=== PATIENT | male | born 1970 | race Caucasian/White ===

== ENCOUNTER 2021-11-26 09:55 | Inpatient (IN) ==
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
[2021-11-26 11:45] LABS: Basophils # (auto) 0.06 K/uL (0-0.2); Basophils % (auto) 0.8 %; Eosinophils # (auto) 0.12 K/uL (0-0.50); Eosinophils % (auto) 1.5 %; Hematocrit (blood only) 44.2 % (40.1-51.0); Hemoglobin 14.7 g/dl (14.0-18.0); Immature Granulocytes # (auto) 0.01 K/uL (0.00-0.02); Immature Granulocytes % (auto) 0.1 %; Lymphocytes # (auto) 3.16 K/uL (1.2-3.4); Lymphocytes % (auto) 40.5 %; Mean Corpuscular Hemoglobin 30.9 pg (25.0-34.0); Mean Corpuscular Hgb Conc 33.3 g/dL (32.0-36.0); Mean Corpuscular Volume 93.1 fL (80.0-100.0); Mean Platelet Volume 8.8 fL (9.4-12.4); Monocytes # (auto) 0.53 K/uL (0.24-0.82); Monocytes % (auto) 6.8 %; Neutrophils # (auto) 3.92 K/uL (1.4-6.5); Neutrophils % (auto) 50.3 %; Platelet Count 293 K/uL (130-400); RDW Coefficient of Variation 13.1 % (11.5-14.5); RDW Standard Deviation 44.8 fL (36.4-46.3); Red Blood Count 4.75 M/uL (4.63-6.08)
[2021-11-26 12:08] LABS: BUN Creatinine Ratio 9.3 (10-20); Creatinine Clr Calc Pharmacy 93.8 ml/min; Est GFR (African American) 102.9 ml/min; Est GFR (Non-African American) 88.8 ml/min; Potassium 4.1 mmol/L (3.5-5.1)
[2021-11-26] MEDS: PENICILLIN G POTASSIUM 4 MU in DEXTROSE 5% 100 ML IV SCH ×3 (12:43→21:00)
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
[2021-11-26] MEDS ORDERED: ACETAMINOPHEN 325 MG TAB PO PRN (14:35)
[2021-11-26] MEDS ORDERED: ALUMINUM/MAGNESIUM SUSP 30 ML UDC PO PRN (14:35)
[2021-11-26] MEDS ORDERED: MAGNESIUM HYDROXIDE SUSP 30 ML UDC PO PRN (14:35)
[2021-11-26] MEDS ORDERED: ONDANSETRON INJ 2 MG/ML 2 ML VIAL IV PRN (14:35)
[2021-11-26] MEDS ORDERED: POLYETHYLENE (MIRALAX) 17 GM PACK PO PRN (14:35)
[2021-11-26] MEDS: LIDOCAINE 5% 1 PATCH TD SCH (15:15)
[2021-11-26] MEDS: NICOTINE 14 MG/24 HR PATCH TD SCH (15:15)
[2021-11-26 18:10] LABS: Appearance Urine Clear (Clear); Bacteria Urine Automated Negative (Negative); Bilirubin Urine Negative (Negative); Blood Urine Negative (Negative); Cast Urine Automated 0 /lpf (0-5); Color Urine Yellow; Glucose Urine UA Negative (Negative); Ketones Urine Negative (Negative); Leukocyte Esterase Urine 2+ (Negative); Nitrite Urine Negative (Negative); Protein Urine Negative (Negative); RBC Urine Automated 0-4 /hpf (0-4); Specific Gravity Urine 1.018 (1.000-1.030); Urobilinogen Urine Negative (Negative); pH Urine 6.5 (4.5-7.5)
[2021-11-26] MEDS: BIKTARVY PO SCH (21:01)
[2021-11-27] MEDS: PENICILLIN G POTASSIUM 4 MU in DEXTROSE 5% 100 ML IV SCH ×7 (00:23→23:58)
[2021-11-27 07:44] LABS: Basophils # (auto) 0.05 K/uL (0-0.2); Basophils % (auto) 0.7 %; Eosinophils # (auto) 0.13 K/uL (0-0.50); Eosinophils % (auto) 1.8 %; Hematocrit (blood only) 43.4 % (40.1-51.0); Immature Granulocytes # (auto) 0.02 K/uL (0.00-0.02); Immature Granulocytes % (auto) 0.3 %; Lymphocytes % (auto) 45.5 %; Mean Corpuscular Hemoglobin 31.3 pg (25.0-34.0); Mean Corpuscular Hgb Conc 34.6 g/dL (32.0-36.0); Mean Corpuscular Volume 90.6 fL (80.0-100.0); Mean Platelet Volume 8.9 fL (9.4-12.4); Monocytes # (auto) 0.44 K/uL (0.24-0.82); Monocytes % (auto) 6.1 %; Neutrophils # (auto) 3.31 K/uL (1.4-6.5); Neutrophils % (auto) 45.6 %; Platelet Count 286 K/uL (130-400); RDW Coefficient of Variation 13.1 % (11.5-14.5); RDW Standard Deviation 43.3 fL (36.4-46.3); Red Blood Count 4.79 M/uL (4.63-6.08); White Blood Count 7.25 K/ul (4.8-10.8)
[2021-11-27 08:04] LABS: Albumin Globulin Ratio 1.2 (0.9-2); Albumin Level 3.8 gm/dl (3.4-5.0); BUN Creatinine Ratio 10.8 (10-20); Bilirubin,Total 0.5 mg/dl (0.2-1.0); Creatinine Clr Calc Pharmacy 89.2 ml/min; Est GFR (African American) 96.8 ml/min; Est GFR (Non-African American) 83.5 ml/min; Globulin 3.2 gm/dl (2.5-4.0); Magnesium 1.9 mg/dl (1.7-2.4); Potassium 4.1 mmol/L (3.5-5.1)
[2021-11-27] MEDS ORDERED: BIKTARVY PO SCH (09:00)
[2021-11-27] MEDS: NICOTINE 14 MG/24 HR PATCH TD SCH (09:32)
[2021-11-27] MEDS: LIDOCAINE 5% 1 PATCH TD SCH (09:49)
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
--- NOTE | 2021-11-27 16:45 | Hospitalist Progress Note ---
Date of Service November 27, 2021 Assessment & Plan (1) Syphilis: Plan: Possible Neurosyphilis due to vision changes Pt was tested positive for syphilis in June with positive RPR and positive fluorescent antibody Spoke To Infectious disease (Betty PUENTE ) at [facility] in [place] that recommended IV Penicillin G 4 Mu q4h or continuous for 10 to 14 days No need to get an LP as per infectious disease since pt refused to get it and will not change the management No need for CT head as per ID unless pt develops focal neuro deficit Per ophthalmology consult, symptoms are consistent with a homonymous field deficit with source of pathology in the JAVA TECHNICAL ARCHITECT visual pathways and not in the eyes or optic nerves. Concern for vascular event given sudden onset. Recommends further optic imaging upon discharge for a more definitive diagnosis and gauging prognosis for possible driving limitations. The patient has symptoms consistent with a homonymous field deficit. This places the source of the pathology in the JAVA TECHNICAL ARCHITECT visual pathways or visual cortex behind the optic chiasm and not in the eyes or optic nerves. Given the sudden onset a vascular event would seem the most likely cause. I would recommend imaging to better evaluate for a more definitive diagnosis. Upon discharge a more thorough eye exam as an outpatient is indicated with automated visual field testing. This would better define his field deficit to gauge prognosis and whether there should be limitations on driving. Spoke to [place] at [facility] (no need to contact them - she will get in touch with ID once treatment completes) Will need to follow up with ID as an outpatient Case management consulted for social disposition and possible to arrange for outpatient IV infusion HIV Most recent CD4 count 836 (24%) VL <20 on 10/27 Continue Biktavy HS Follow up with ID Dr. Wang Vertigo Pt said that symptom started after received his last covid shot No focal neuro deficit on exam If develops any focal neuro deficit, consider to get a CT scan of the head Will consult PT/OT Chronic Viral hepatis B Most recent recent viral load 3440 Outpatient U/S ordered as per ID note Will check LFT in am Questionable Hematuria Possible related to Aleve for his back pain vs renal stone Hgb stable, UA without evidence of blood or rbcs Will avoid NSAIDs for now Back pain No NSAID for the hematuria Will add Lidocaine patch Tobacco abuse Counseling on tobacco cessation Will add nicotine patch DVT px SCD for now for possible hematuria Encourage pt to ambulate once stable by PT/OT Code status FULL CODE Disposition ID Contact Aung): [phone] [facility] ([place]) : [phone] Admission and Anticipated Discharge Date Admission Date: November 26, 2021 Supervising Physician Co-Signing Physician Notes Patient is seen and examined at bedside. Continues to have visual haley llucinations. Also reports having mild headache. Denies any chest pain, shortness of breath, dizziness, nausea, abdominal pain. On exam patient is moderately built and nourished, no apparent distress, normocephalic atraumatic, EOMI, normal breath sounds, clear to auscultation, S1-S2, no murmur, no pedal edema, abdomen soft, nontender, normal bowel sounds, alert, awake, oriented, grossly no focal deficits. Continue IV penicillin G for possible neurosyphilis. Needs follow-up with infectious disease as outpatient. Also needs follow-up with ophthalmology upon discharge. I personally reviewed the record. Patient is interviewed and examined at bedside. Patient's care is coordinated with Eladia Washington PA-C. Please refer to the documentation above for details of patient's presentation and for discussion of other issues. Subjective Patient seen and examined in 355-2 in follow-up for visual disturbances and concern for neurosyphilis. Patient continues to have visual disturbances worse in right eye. Notices it most when he is trying to watch TV. Any focal weakness or additional deficits. Able to ambulate to the restroom without issue . Denies any fever, chills, headache, chest pain, shortness of breath, nausea, vomiting, abdominal pain, dysuria, diarrhea constipation. Review of Systems Review of Systems: At least ten systems reviewed and negative except as noted in the HPI. Physical Exam Physical Exam: General- No acute distress, resting comfortably in bed while IV team places new line Head- atraumatic Eyes- PERRL, EOMI ENT- oropharynx clear Neck- supple, no JVD, No carotid bruit present. No rigidity Lungs- clear to auscultation Heart- regular rhythm; no murmur Abdomen- normal bowel sounds, soft, nontender Extremities- no calf tenderness Neuro- alert, oriented x 3; PERRL, EOMI; no facial palsy; no dysarthria, finger to nose intact, sensation and motor intact Skin- warm & dry, tattoos on his back and extremities Results & Data Results & Data ([facility]) Vital Signs (Past 12 Hours) Vital Signs Temp Pulse Resp BP Pulse Ox 11/27/21 15:51 36.8 C 65 16 110/75 97 11/27/21 07:27 36.8 C 62 16 109/71 96 Laboratory Results Short CBC 11/27/21 Range/Units 07:14 WBC 7.25 (4.8-10.8) K/ul Hgb 15.0 (14.0-18.0) g/dl Hct 43.4 (40.1-51.0) % Plt Count 286 (130-400) K/uL BMP 11/27/21 07:14 Sodium 138 Potassium 4.1 Chloride 106 Carbon Dioxide 28 BUN 11 Creatinine 1.02 Glucose 94 Calcium 9.0 Liver Function 11/27/21 Range/Units 07:14 Total Bilirubin 0.5 (0.2-1.0) mg/dl AST 25 (13-39) U/L ALT 42 (7-52) U/L Alkaline Phosphatase 76 (34-104) U/L Albumin 3.8 (3.4-5.0) gm/dl Urine 11/26/21 Range/Units 16:20 Urine Color Yellow Urine Appearance Clear (Clear) Urine pH 6.5 (4.5-7.5) Ur Specific [place] 1.018 (1.000-1.030) Urine Protein Negative (Negative) Urine Glucose (UA) Negative (Negative)
--- NOTE | 2021-11-27 19:36 | CT Scan Report ---
CT head/brain wo con CLINICAL HISTORY: 51 years-old Male with Visual changes, R/O CVA. Acute strokelike symptoms TECHNIQUE: Multiple axial CT images of the head were obtained without contrast. A dose lowering tech nique was utilized adhering to the principles of ALARA. CT DOSE: 537.48 mGy.cm COMPARISON: 01/11/2007 FINDINGS: No acute intracranial hemorrhage, midline shift, intracranial mass, hydrocephalus, territorial ischem ia or abnormal extra-axial collection. The calvarium is intact. Subcutaneous prominence within the right parieto-occipital scalp on image 20 is suggestive of a small contusion. The paranasal sinuses, mastoid air cells, and middle ear cavitie s are clear. IMPRESSION: No acute intracranial abnormality. ACT 112: Negative or not required by law. The above report was generated using voice recognition software. It may contain grammatical, syntax o r spelling errors. Electronically signed by: Vik Chong M.D. 11/27/2021 7:35 PM
[2021-11-27] MEDS: BIKTARVY PO SCH (20:11)
[2021-11-28] MEDS: PENICILLIN G POTASSIUM 4 MU in DEXTROSE 5% 100 ML IV SCH ×6 (03:54→23:54)
[2021-11-28 07:21] LABS: Hematocrit (blood only) 45.1 % (40.1-51.0); Hemoglobin 15.3 g/dl (14.0-18.0); Mean Corpuscular Hemoglobin 30.8 pg (25.0-34.0); Mean Corpuscular Hgb Conc 33.9 g/dL (32.0-36.0); Mean Corpuscular Volume 90.9 fL (80.0-100.0); Mean Platelet Volume 8.9 fL (9.4-12.4); Platelet Count 292 K/uL (130-400); RDW Standard Deviation 43.1 fL (36.4-46.3); Red Blood Count 4.96 M/uL (4.63-6.08); White Blood Count 6.76 K/ul (4.8-10.8)
[2021-11-28 07:48] LABS: BUN Creatinine Ratio 16.8 (10-20); Calcium 9.3 mg/dl (8.5-10.1); Est GFR (African American) 91.4 ml/min; Est GFR (Non-African American) 78.8 ml/min; Potassium 4.1 mmol/L (3.5-5.1)
[2021-11-28] MEDS: LIDOCAINE 5% 1 PATCH TD SCH (08:18)
[2021-11-28] MEDS: NICOTINE 14 MG/24 HR PATCH TD SCH (08:18)
[2021-11-28] MEDS ORDERED: GADOBUTROL 65ML VIAL IV ONE (10:10)
--- NOTE | 2021-11-28 10:44 | Magnetic Resonance Report ---
MR brain wo/w con HISTORY: 51 years-old Male stroke eval, visual disturbances acute strokelike symptoms COMPARISON: Head CT 11/27/2021 TECHNIQUE: Multiplanar multisequence MRI of the brain was obtained both with and without the use of 7 .5 cc Gadavist FINDINGS: No restricted diffusion. Midline structures appear unremarkable. Degenerative changes of the imaged c ervical spine. Motion degraded study. No acute intracranial hemorrhage, midline shift, abnormal extra -axial collection, hydrocephalus or intracranial mass. Signal and volume of the brain parenchyma is w ithin normal limits. No abnormal enhancement. Cerebral venous sinuses and major arterial flow voids appear patent. The skull, orbits and soft tissu es are unremarkable. Mastoid air cells and paranasal sinuses are clear. IMPRESSION: 1. No acute intracranial abnormality. No acute or subacute infarct. 2. No abnormal enhancement. ACT 112: Negative or not required by law. The above report was generated using voice recognition software. It may contain grammatical, syntax o r spelling errors. Electronically signed by: Vik Chong M.D. 11/28/2021 10:42 AM
--- NOTE | 2021-11-28 14:27 | Hospitalist Progress Note ---
Date of Service November 28, 2021 Assessment & Plan (1) Syphilis: Plan: Possible Neurosyphilis due to vision changes Pt was tested positive for syphilis in June with positive RPR and positive fluorescent antibody Spoke To Infectious disease (Betty PUENTE ) at [facility] in [place] that recommended IV Penicillin G 4 Mu q4h or continuous for 10 to 14 days No need to get an LP as per infectious disease since pt refused to get it and will not change the management Per ophthalmology consult, symptoms are consistent with a homonymous field deficit with source of pathology in the HOSPICE TEAM LEAD visual pathways and not in the eyes or optic nerves. Head CT and MRI brain w/wo without acute intracranial abnormality noted. No acute or subacute infarct. Recommends eye exam upon discharge with visual field testing for a more definitive diagnosis. Our team can make appointment with OP ophthalmology office closer to discharge. Will need to discuss driving limitations given visual deficits. Spoke to [place] at the department of health (no need to contact them - she will get in touch with ID once treatment completes) Will need to follow up with ID as an outpatient Case management consulted for social disposition and possible to arrange for outpatient IV infusion HIV Most recent CD4 count 836 (24%) VL <20 on 10/27 Continue Biktavy HS Follow up with ID Dr. Wang Vertigo Pt said that symptom started after received his last covid shot No focal neuro deficit on exam If develops any focal neuro deficit, consider to get a CT scan of the head PT/OT Chronic Viral hepatis B Most recent recent viral load 3440 Outpatient U/S ordered as per ID note Questionable Hematuria on admission Holding nsaids for now. Hgb stable at 15. UA without evidence of blood or rbcs Back pain No NSAID for the hematuria Will add Lidocaine patch, tylenol PRN Tobacco abuse Counseling on tobacco cessation Will add nicotine patch DVT px SQ heparin Q12H - can stop if hematuria recurs Encourage pt to ambulate once stable by PT/OT Code status FULL CODE Disposition ID Contact (Betty): [phone] [facility] ([place]) : [phone] Admission and Anticipated Discharge Date Admission Date: November 26, 2021 Supervising Physician Co-Signing Physician Notes Patient is seen and examined at bedside. Patient continues to have visual disturbances. States feeling tired. No other complaints today. Denies any chest pain, shortness of breath, dizziness, nausea, abdominal pain. On exam patient is moderately built and nourished, no apparent distress, normocephalic atraumatic, EOMI, normal breath sounds, clear to auscultation, S1-S2, no murmur, no pedal edema, abdomen soft, nontender, normal bowel sounds, alert, awake, oriented, grossly no focal deficits. Syphilis ; suspected neurosyphilis with visual changes. Continue IV penicillin G for possible neurosyphilis. Needs follow-up with infectious disease as outpatient. MRI brain showed no acute abnormality. Needs follow-up with ophthalmology upon discharge. No driving recommended until cleared by ophthalmology. I personally reviewed the record. Patient is interviewed and examined at bedside. Patient's care is coordinated with Eladia Washington PA-C. Please refer to the documentation above for details of patient's presentation and for discussion of other issues. Subjective Patient seen and examined in 355-2 in follow-up for visual disturbances and concern for neurosyphilis. Patient continues to have visual disturbances in both eyes, worse in right eye. Notices it most when he is trying to watch TV. Has been resting comfortably and ambulating to bathroom without issue. Denies any focal weakness or additional deficits. Denies any fever, chills, headache, chest pain, shortness of breath, nausea, vomiting, abdominal pain, dysuria, diarrhea or constipation. Review of Systems Review of Systems: At least ten systems reviewed and negative except as noted in the HPI. Physical Exam Physical Exam: Gen: WD/WN, NAD, resting in bed, A&Ox3, cooperative on exam HEENT: Normocephalic, atraumatic, conjunctivae moist, sclerae anicteric, mucous membranes moist Lung: Clear to Auscultation bilaterally, no wheezes/rales/rhonchi Heart: Regular rate, regular rhythm, no murmurs, rubs, or gallops Abdomen: Soft, NT, ND +BS x 4 Extremities: no edema Neuro: Moving all extremities, strength and mobility intact Skin: Warm, no rash Results & Data Results & Data ([facility]) Vital Signs (Past 12 Hours) Vital Signs Temp Pulse Resp BP Pulse Ox O2 Del Method 11/28/21 07:59 36.7 C 54 L 17 117/76 96 Room Air
[2021-11-28] MEDS: BIKTARVY PO SCH (20:23)
[2021-11-28] MEDS ORDERED: MELATONIN 3 MG TAB PO PRN (23:49)
[2021-11-29] MEDS: PENICILLIN G POTASSIUM 4 MU in DEXTROSE 5% 100 ML IV SCH ×6 (04:21→23:57)
[2021-11-29] MEDS: LIDOCAINE 5% 1 PATCH TD SCH (09:18)
[2021-11-29] MEDS: NICOTINE 14 MG/24 HR PATCH TD SCH (09:18)
[2021-11-29] MEDS ORDERED: DOCUSATE SODIUM 100 MG CAP PO PRN (12:53)
[2021-11-29] MEDS ORDERED: POLYETHYLENE (MIRALAX) 17 GM PACK PO ONE (12:53)
[2021-11-29] MEDS: BIKTARVY PO SCH (19:55)
--- NOTE | 2021-11-29 19:57 | Hospitalist Progress Note ---
Date of Service November 29, 2021 Assessment & Plan (1) Syphilis: Plan: Possible Neurosyphilis due to vision changes Pt was tested positive for syphilis in June with positive RPR and positive fluorescent antibody Spoke To Infectious disease (Betty PUENTE ) at [facility] in [place] that recommended IV Penicillin G 4 Mu q4h or continuous for 10 to 14 days No need to get an LP as per infectious disease since pt refused to get it and will not change the management Per ophthalmology consult, symptoms are consistent with a homonymous field deficit with source of pathology in the FILM CASTING OPERATOR visual pathways and not in the eyes or optic nerves. Head CT and MRI brain w/wo without acute intracranial abnormality noted. No acute or subacute infarct. Recommends eye exam upon discharge with visual field testing for a more definitive diagnosis. Our team can make appointment with OP ophthalmology office closer to discharge. Continue current antibiotics Needs follow-up with ID upon discharge Constipation Continue bowel regimen HIV Most recent CD4 count 836 (24%) VL <20 on 10/27 Continue Biktavy HS Follow up with ID Dr. Wang Vertigo Started after received his last covid shot No focal neuro deficit on exam Chronic Viral hepatis B Most recent recent viral load 3440 Outpatient U/S ordered as per ID note Questionable Hematuria on admission Avoid Nsaids Monitor CBC No recurrence of hematuria while on SQ Heparin Back pain No NSAID for the hematuria Lidocaine patch, tylenol PRN Tobacco abuse Counseling on tobacco cessation Nicotine patch DVT Px SQ heparin Code status FULL CODE Disposition To be determined ID Contact (Betty): [phone] [facility] ([facility]) : [phone] Admission and Anticipated Discharge Date Admission Date: November 26, 2021 Subjective Patient is seen and examined at bedside States having constipation Visual changes unchanged Denies any chest pain, shortness of breath, dizziness, nausea, abdominal pain Offers no other complaints Review of Systems Review of Systems: All systems reviewed & are unremarkable except as noted in Subjective Physical Exam Physical Exam: Physical Exam: Vitals signs as noted above General Appearance:Moderately built and nourished, no apparent distress Head: normocephalic, Atraumatic Eyes: normal inspection, EOMI, +Visual field deficit Neck: supple, Trachea midline Respiratory/Chest: Normal breath sounds, CTA, No accessory muscle use Cardiovascular: S1, S2, No murmur Abdomen/GI:Soft, Non tender, Bowel sounds present Extremities/Musculoskeletal:normal inspection, no edema Neurologic/Psych:AAOX3, grossly no focal neurological deficits Skin: normal color, warm, +Tattoos Results & Data Results & Data ([facility]) Vital Signs (Past 12 Hours) Vital Signs Temp Pulse Resp BP Pulse Ox O2 Del Method 11/29/21 16:00 36.7 C 66 20 112/67 97 Room Air 11/29/21 09:00 36.4 C L 59 L 18 110/70 97 Room Air
[2021-11-29] MEDS: MELATONIN 3 MG TAB PO PRN (20:37)
[2021-11-30] MEDS: LORazepam 0.5 MG TAB PO PRN ×2 (00:11→21:27)
[2021-11-30] MEDS: PENICILLIN G POTASSIUM 4 MU in DEXTROSE 5% 100 ML IV SCH ×6 (04:05→23:51)
[2021-11-30] MEDS: NICOTINE 14 MG/24 HR PATCH TD SCH (08:27)
[2021-11-30] MEDS: LIDOCAINE 5% 1 PATCH TD SCH (08:28)
--- NOTE | 2021-11-30 17:03 | Hospitalist Progress Note ---
Date of Service November 30, 2021 Assessment & Plan (1) Syphilis: Plan: Possible Neurosyphilis due to vision changes Pt was tested positive for syphilis in June with positive RPR and positive fluorescent antibody Spoke To Infectious disease (Betty PUENTE ) at [facility] in [place] that recommended IV Penicillin G 4 Mu q4h or continuous for 10 to 14 days No need to get an LP as per infectious disease since pt refused to get it and will not change the management Per ophthalmology consult, symptoms are consistent with a homonymous field deficit with source of pathology in the OFFICE CLERK ROUTINE visual pathways and not in the eyes or optic nerves. Head CT and MRI brain w/wo without acute intracranial abnormality noted. No acute or subacute infarct. Recommends eye exam upon discharge with visual field testing for a more definitive diagnosis. Our team can make appointment with OP ophthalmology office closer to discharge. Continue current antibiotics Needs follow-up with ID upon discharge Ultrasound-guided peripheral IV line placed for IV antibiotic Constipation Continue bowel regimen Check KUB tomorrow Encouraged to ambulate HIV Most recent CD4 count 836 (24%) VL <20 on 10/27 Continue Biktavy HS Follow up with ID Dr. Wang Vertigo Started after received his last covid shot No focal neuro deficit on exam Chronic Viral hepatis B Most recent recent viral load 3440 Outpatient U/S ordered as per ID note Questionable Hematuria on admission Avoid Nsaids Monitor CBC No recurrence of hematuria while on SQ Heparin Back pain No NSAID for the hematuria Lidocaine patch, tylenol PRN Tobacco abuse Counseling on tobacco cessation Nicotine patch DVT Px SQ heparin Code status FULL CODE Disposition To be determined ID Contact (Betty): [phone] [facility] : [phone] Admission and Anticipated Discharge Date Admission Date: November 26, 2021 Subjective Patient is seen and examined at bedside Visual changes unchanged Denies any chest pain, shortness of breath, dizziness, nausea, abdominal pain Still has constipation Review of Systems Review of Systems: All systems reviewed & are unremarkable except as noted in Subjective Physical Exam Physical Exam: Physical Exam: Vitals signs as noted above General Appearance:Moderately built and nourished, no apparent distress Head: normocephalic, Atraumatic Eyes: normal inspection, EOMI, +Visual field deficit Neck: supple, Trachea midline Respiratory/Chest: Normal breath sounds, CTA, No accessory muscle use Cardiovascular: S1, S2, No murmur Abdomen/GI:Soft, Non tender, Bowel sounds present Extremities/Musculoskeletal:normal inspection, no edema Neurologic/Psych:AAOX3, grossly no focal neurological deficits Skin: normal color, warm, +Tattoos Results & Data Results & Data ([facility]) Vital Signs (Past 12 Hours) Vital Signs Temp Pulse Resp BP Pulse Ox O2 Del Method 11/30/21 16:00 36.7 C 64 18 118/76 97 Room Air 11/30/21 07:47 36.7 C 63 20 121/68 97 Room Air
[2021-11-30] MEDS: BIKTARVY PO SCH (20:18)
[2021-11-30] MEDS: MELATONIN 3 MG TAB PO PRN (21:27)
[2021-12-01] MEDS: PENICILLIN G POTASSIUM 4 MU in DEXTROSE 5% 100 ML IV SCH ×5 (03:53→20:54)
[2021-12-01 06:11] LABS: Hematocrit (blood only) 40.7 % (40.1-51.0); Hemoglobin 13.9 g/dl (14.0-18.0); Mean Corpuscular Hemoglobin 30.8 pg (25.0-34.0); Mean Corpuscular Hgb Conc 34.2 g/dL (32.0-36.0); Platelet Count 260 K/uL (130-400); RDW Coefficient of Variation 12.7 % (11.5-14.5); RDW Standard Deviation 42.2 fL (36.4-46.3); Red Blood Count 4.52 M/uL (4.63-6.08); White Blood Count 6.73 K/ul (4.8-10.8)
[2021-12-01 06:33] LABS: Calcium 8.9 mg/dl (8.5-10.1); Creatinine Clr Calc Pharmacy 96.8 ml/min; Est GFR (African American) 106.9 ml/min; Est GFR (Non-African American) 92.2 ml/min
[2021-12-01] MEDS: LIDOCAINE 5% 1 PATCH TD SCH (07:50)
[2021-12-01] MEDS: NICOTINE 14 MG/24 HR PATCH TD SCH (07:51)
--- NOTE | 2021-12-01 09:27 | XRay Report ---
KUB HISTORY: Acute generalized abdominal pain with constipation constipation COMPARISON: Chest radiograph 01/11/2017 FINDINGS: Moderate to extensive fecal retention. Nonobstructive bowel gas pattern. The renal shadows are obscured by bowel gas. No renal calculi. No ureteral calculi. No pneumoperitoneum or pneumatosis . No fracture. IMPRESSION: 1. Nonobstructive bowel gas pattern. 2. Moderate to extensive fecal retention. ACT 112: Negative or not required by law. The above report was generated using voice recognition software. It may contain grammatical, syntax o r spelling errors. Electronically signed by: Vik Chong M.D. 12/01/2021 9:24 AM
[2021-12-01] MEDS ORDERED: POLYETHYLENE (MIRALAX) 17 GM PACK PO PRN (11:28)
[2021-12-01] MEDS: SENNA 8.6 MG TAB PO SCH (12:29)
[2021-12-01] MEDS: DOCUSATE SODIUM 100 MG CAP PO SCH ×2 (12:29→20:55)
--- NOTE | 2021-12-01 16:34 | Hospitalist Progress Note ---
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 Head CT and MRI brain w/wo without acute intracranial abnormality noted. No acute or subacute infarct. Recommends eye exam upon discharge with visual field testing for a more definitive diagnosis. Our team can make appointment with OP ophthalmology office closer to discharge. Continue current antibiotics Needs follow-up with ID upon discharge Ultrasound-guided peripheral IV line placed for IV antibiotic Constipation KUB:Nonobstructive bowel gas pattern. Moderate to extensive fecal retention. Continue bowel regimen Encouraged to ambulate HIV Most recent CD4 count 836 (24%) VL <20 on 10/27 Continue Biktavy HS Follow up with ID Dr. Wang Vertigo Started after received his last covid shot No focal neuro deficit on exam Chronic Viral hepatis B Most recent recent viral load 3440 Outpatient U/S ordered as per ID note Questionable Hematuria on admission Avoid Nsaids Monitor CBC No recurrence of hematuria while on SQ Heparin Back pain No NSAID for the hematuria Lidocaine patch, tylenol PRN Tobacco abuse Counseling on tobacco cessation Nicotine patch DVT Px SQ heparin Code status FULL CODE Disposition To be determined ID Contact (Betty): [phone] [facility] ([facility]) : [phone] Admission and Anticipated Discharge Date Admission Date: November 26, 2021 Subjective Patient is seen and examined at bedside Reports constipation No change in Visual symptoms Denies any chest pain, shortness of breath, dizziness, nausea, abdominal pain No other complaints Review of Systems Review of Systems: All systems reviewed & are unremarkable except as noted in Subjective Physical Exam Physical Exam: Physical Exam: Vitals signs as noted above General Appearance:Moderately built and nourished, no apparent distress Head: normocephalic, Atraumatic Eyes: normal inspection, EOMI, +Visual field deficit Neck: supple, Trachea midline Respiratory/Chest: Normal breath sounds, CTA, No accessory muscle use Cardiovascular: S1, S2, No murmur Abdomen/GI:Soft, Non tender, Bowel sounds present Extremities/Musculoskeletal:normal inspection, no edema Neurologic/Psych:AAOX3, grossly no focal neurological deficits Skin: normal color, warm, +Tattoos Results & Data Results & Data ([facility]) Vital Signs (Past 12 Hours) Vital Signs Temp Pulse Resp BP Pulse Ox O2 Del Method 12/01/21 15:10 36.4 C 76 16 122/75 96 Room Air 12/01/21 07:23 36.4 C L 55 L 16 105/68 97 Room Air Laboratory Results Short CBC 12/01/21 Range/Units 05:33 WBC 6.73 (4.8-10.8) K/ul Hgb 13.9 L (14.0-18.0) g/dl Hct 40.7 (40.1-51.0) % Plt Count 260 (130-400) K/uL BMP 12/01/21 05:33 Sodium 138 Potassium 4.0 Chloride 105 Carbon Dioxide 29 BUN 16 Creatinine 0.94 Glucose 95 Calcium 8.9
[2021-12-01] MEDS: MELATONIN 3 MG TAB PO PRN (20:54)
[2021-12-01] MEDS: BIKTARVY PO SCH (20:54)
[2021-12-01] MEDS: LORazepam 0.5 MG TAB PO PRN (20:54)
[2021-12-02] MEDS: PENICILLIN G POTASSIUM 4 MU in DEXTROSE 5% 100 ML IV SCH ×6 (01:19→20:07)
[2021-12-02] MEDS: DOCUSATE SODIUM 100 MG CAP PO SCH ×2 (08:26→20:08)
[2021-12-02] MEDS: LIDOCAINE 5% 1 PATCH TD SCH (08:28)
[2021-12-02] MEDS: SENNA 8.6 MG TAB PO SCH (08:28)
[2021-12-02] MEDS: NICOTINE 14 MG/24 HR PATCH TD SCH (08:28)
--- NOTE | 2021-12-02 16:12 | Hospitalist Progress Note ---
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 Case management following. 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 Head CT and MRI brain w/wo without acute intracranial abnormality noted. No acute or subacute infarct. Recommends eye exam upon discharge with visual field testing for a more definitive diagnosis. Our team can make appointment with OP ophthalmology office closer to discharge. Constipation Resolved Continue bowel regimen HIV Most recent CD4 count 836 (24%) VL <20 on 10/27 Continue Biktarvy HS Follow up with ID Dr. Criselda Wang at [facility] Vertigo Started after received his last covid shot No focal neuro deficit on exam Seems to be improving Chronic Viral hepatis B Most recent recent viral load 3440 Outpatient U/S ordered as per ID note Questionable Hematuria on admission Resolved, no further episodes Avoid Nsaids Hgb remained stable Back pain Controlled with lidocaine patch and as needed Tylenol Tobacco abuse Counseling on tobacco cessation Nicotine patch DVT Px SQ heparin ID Contact (Betty): [phone] [facility] ([place]) : [phone] Admission and Anticipated Discharge Date Admission Date: November 26, 2021 Supervising Physician Co-Signing Physician Notes Patient is seen and examined at bedside. Had small bowel movement. States having mild dizziness while ambulating in hallway. No other new complaints. Denies any chest pain, shortness of breath, nausea, abdominal pain. On exam patient is moderately built and nourished, no apparent distress, normocephalic atraumatic, EOMI, normal breath sounds, clear to auscultation, S1-S2, no murmur, no pedal edema, abdomen soft, nontender, normal bowel sounds, alert, awake, oriented, grossly no focal deficits. Syphilis ; suspected neurosyphilis with visual changes. Continue IV penicillin G for possible neurosyphilis. Needs follow-up with infectious disease as outpatient. Continue bowel regimen for constipation. No driving recommended until cleared by ophthalmology. I personally reviewed the record. Patient is interviewed and examined at bedside. Patient's care is coordinated with Serene sampson CARDIOLOGY MANAGER. Please refer to the documentation above for details of patient's presentation and for discussion of other issues. Subjective Follow-up for neurosyphilis. Patient seen and examined. Reports vision changes continue. Continues to have intermittent lightheadedness and dizziness with standing however seems to be improving. Patient offers no other complaints. Denies chest pain shortness of breath. No abdominal pain or nausea. Review of Systems Review of Systems: ROS per HPI, all other systems reviewed and negative Physical Exam Constitutional: WD/WN, vitals as above no acute distress Respiratory: normal respiratory effort, lungs clear to auscultation Cardiovascular: Rate/Rhythm: regular rate and regular rhythm Vessels: normal peripheral pulses Extremities: no edema Gastrointestinal (Abdomen): Percussion/Palpation: abdomen soft; abdomen nontender Musculoskeletal: no cyanosis or clubbing, extremities motor strength 5/5 Skin: no rashes, warm and dry Neurologic: no focal motor deficits Psychiatric: A+Ox3, euthymic affect Results & Data Results & Data ([facility]) Vital Signs (Past 12 Hours) Vital Signs Temp Pulse Resp BP Pulse Ox O2 Del Method 12/02/21 14:45 36.7 C 64 16 115/64 97 Room Air 12/02/21 07:35 36.6 C 56 L 16 111/64 97 Room Air
[2021-12-02] MEDS: BIKTARVY PO SCH (20:08)
[2021-12-02] MEDS: MELATONIN 3 MG TAB PO PRN (20:11)
[2021-12-02] MEDS: LORazepam 0.5 MG TAB PO PRN (20:11)
[2021-12-02] MEDS: HEPARIN SOD 5,000 UNIT/0.5 ML VIAL SQ SCH (20:13)
[2021-12-03] MEDS: PENICILLIN G POTASSIUM 4 MU in DEXTROSE 5% 100 ML IV SCH ×6 (00:04→21:12)
[2021-12-03] MEDS: HEPARIN SOD 5,000 UNIT/0.5 ML VIAL SQ SCH ×2 (08:43→21:13)
[2021-12-03] MEDS: DOCUSATE SODIUM 100 MG CAP PO SCH ×2 (08:58→21:13)
[2021-12-03] MEDS: LIDOCAINE 5% 1 PATCH TD SCH (08:59)
[2021-12-03] MEDS: NICOTINE 14 MG/24 HR PATCH TD SCH (08:59)
[2021-12-03] MEDS: SENNA 8.6 MG TAB PO SCH (08:59)
--- NOTE | 2021-12-03 15:23 | Hospitalist Progress Note ---
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 Pedro Wang at [facility] Discharge planning difficult due to patient's current homeless state and need for IV antibiotic q4h. Plan is for patient to remain hospitalized until he completes antibiotic course on 12/06. Patient states that he has a place to stay once discharged from the hospital and is established with a local agency to help with a more permanent housing option. 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 Head CT and MRI brain w/wo without acute intracranial abnormality noted. No acute or subacute infarct. Recommends eye exam upon discharge with visual field testing for a more definitive diagnosis. Follow-up with ophthalmology as an outpatient after discharge. Constipation Resolved Continue bowel regimen HIV Most recent CD4 count 836 (24%) VL <20 on 10/27 Continue Biktarvy HS Follow up with ID Dr. Criselda Wang at [facility] Vertigo Started after received his last covid shot No focal neuro deficit on exam Seems to be improving Chronic Viral hepatis B Most recent recent viral load 3440 Outpatient U/S ordered as per ID note Questionable Hematuria on admission Resolved, no further episodes Avoid Nsaids Hgb remained stable Back pain Controlled with lidocaine patch and as needed Tylenol Tobacco abuse Counseling on tobacco cessation Nicotine patch DVT Px SQ heparin ID Contact (Betty): [phone] [facility] ([place]) : [phone] Admission and Anticipated Discharge Date Admission Date: November 26, 2021 Supervising Physician Co-Signing Physician Notes Patient is seen and examined at bedside. constipation resolved. No dizziness today. Denies any chest pain, shortness of breath, nausea, abdominal pain. On exam patient is moderately built and nourished, no apparent distress, normocephalic atraumatic, EOMI, normal breath sounds, clear to auscultation, S1- S2, no murmur, no pedal edema, abdomen soft, nontender, normal bowel sounds, alert, awake, oriented, grossly no focal deficits. Syphilis ; suspected neurosyphilis with visual changes. Continue IV penicillin G for possible neurosyphilis. Needs follow-up with infectious disease as outpatient. Continue bowel regimen--hold for diarrhea . No driving recommended until cleared by ophthalmology. I personally reviewed the record. Patient is interviewed and examined at bedside. Patient's care is coordinated with Serene sampson PACKAGING SUPERVISOR. Please refer to the documentation above for details of patient's presentation and for discussion of other issues. Subjective Follow-up for neurosyphilis. Patient seen and examined. Resting in bed. Vision changes continue, otherwise offers no complaints. Denies chest pain and shortness of breath. No abdominal pain or nausea. Good appetite. Review of Systems Review of Systems: ROS per HPI, all other systems reviewed and negative Physical Exam Constitutional: WD/WN, vitals as above no acute distress Respiratory: normal respiratory effort, lungs clear to auscultation Cardiovascular: Rate/Rhythm: regular rate and regular rhythm Vessels: normal peripheral pulses Extremities: no edema Gastrointestinal (Abdomen): Percussion/Palpation: abdomen soft; abdomen nontender Skin: no rashes, warm and dry Neurologic: no focal motor deficits Psychiatric: A+Ox3, euthymic affect Results & Data Results & Data ([facility]) Vital Signs (Past 12 Hours) Vital Signs Temp Pulse Pulse Resp BP Pulse Ox O2 Del Method 12/03/21 15:19 37.2 C 67 16 111/56 L 97 Room Air 12/03/21 07:33 36.9 C 64 16 108/69 97 Room Air
[2021-12-03] MEDS: BIKTARVY PO SCH (21:12)
[2021-12-03] MEDS: MELATONIN 3 MG TAB PO PRN (21:22)
[2021-12-03] MEDS: LORazepam 0.5 MG TAB PO PRN (21:23)
[2021-12-04] MEDS: PENICILLIN G POTASSIUM 4 MU in DEXTROSE 5% 100 ML IV SCH ×6 (00:44→20:07)
[2021-12-04] MEDS: LIDOCAINE 5% 1 PATCH TD SCH (08:57)
[2021-12-04] MEDS: NICOTINE 14 MG/24 HR PATCH TD SCH (08:57)
[2021-12-04] MEDS: HEPARIN SOD 5,000 UNIT/0.5 ML VIAL SQ SCH ×2 (08:57→20:07)
[2021-12-04] MEDS: SENNA 8.6 MG TAB PO SCH (08:58)
[2021-12-04] MEDS: DOCUSATE SODIUM 100 MG CAP PO SCH ×2 (09:17→20:07)
--- NOTE | 2021-12-04 13:07 | Hospitalist Progress Note ---
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 Criselda Wang at [facility] scheduled for on December 31 Discharge planning difficult due to patient's current homeless state and need for IV antibiotic q4h. Plan is for patient to remain hospitalized until he completes antibiotic course on 12/06. Patient states that he has a place to stay once discharged from the hospital and is established with a local agency to help with a more permanent housing option. 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 Head CT and MRI brain w/wo without acute intracranial abnormality noted. No acute or subacute infarct. Recommends eye exam upon discharge with visual field testing for a more definitive diagnosis. Follow-up with ophthalmology as an outpatient after discharge. Constipation Resolved Continue bowel regimen HIV Most recent CD4 count 836 (24%) VL <20 on 10/27 Continue Biktarvy HS Follow up with ID Dr. Criselda Wang at [facility] Vertigo Started after received his last covid shot No focal neuro deficit on exam Seems to be improving Chronic Viral hepatis B Most recent recent viral load 3440 Outpatient U/S ordered as per ID note Questionable Hematuria on admission Resolved, no further episodes Avoid Nsaids Hgb remained stable Back pain Controlled with lidocaine patch and as needed Tylenol Tobacco abuse Counseling on tobacco cessation Nicotine patch DVT Px SQ heparin ID Contact (Betty): [phone] [facility] [phone] Admission and Anticipated Discharge Date Admission Date: November 26, 2021 Supervising Physician Co-Signing Physician Notes Patient is seen and examined at bedside. No new complaints. No change in visual symptoms. Denies any chest pain, shortness of breath, nausea, abdominal pain. On exam patient is moderately built and nourished, no apparent distress, normocephalic atraumatic, EOMI, normal breath sounds, clear to auscultation, S1- S2, no murmur, no pedal edema, abdomen soft, nontender, normal bowel sounds, alert, awake, oriented, grossly no focal deficits. Syphilis ; suspected neurosyphilis with visual changes. Continue IV penicillin G for possible neurosyphilis as recommended by ID. Needs follow-up with infectious disease/Ophthalmology upon discharge. I personally reviewed the record. Patient is interviewed and examined at bedside. Patient's care is coordinated with Eladia Washington PA-C. Please refer to the documentation above for details of patient's presentation and for discussion of other issues. Subjective Seen in follow-up for neurosyphilis. Resting in bed, denies any changes to condition overnight. Visual symptoms remain the same. No other neurological findings. No fever, chills, CP, SOB, abdominal pain, N/V/D, dysuria or constipa tion. Ambulating halls without issue. Is planning on staying with a friend locally once discharged. Review of Systems Review of Systems: ROS per HPI, all other systems reviewed and negative Physical Exam Physical Exam: Gen: WD/WN, NAD, sitting in bed, A&Ox3 HEENT: Normocephalic, atraumatic, conjunctivae moist, sclerae anicteric, mucous membranes moist Lung: Clear to Auscultation bilaterally, no wheezes/rales/rhonchi Heart: Regular rate, regular rhythm, no murmurs, rubs, or gallops Abdomen: Soft, NT, ND +BS x 4 Extremities: no edema Skin: Warm, no rash Results & Data Results & Data ([facility]) Vital Signs (Past 12 Hours) Vital Signs Temp Pulse Resp BP Pulse Ox O2 Del Method 12/04/21 08:25 36.8 C 59 L 18 118/72 96 Room Air
[2021-12-04] MEDS: BIKTARVY PO SCH (20:07)
[2021-12-04] MEDS: MELATONIN 3 MG TAB PO PRN (20:12)
[2021-12-04] MEDS: LORazepam 0.5 MG TAB PO PRN (20:12)
[2021-12-05] MEDS: PENICILLIN G POTASSIUM 4 MU in DEXTROSE 5% 100 ML IV SCH ×6 (00:28→20:10)
[2021-12-05] MEDS: NICOTINE 14 MG/24 HR PATCH TD SCH (07:39)
[2021-12-05] MEDS: HEPARIN SOD 5,000 UNIT/0.5 ML VIAL SQ SCH ×2 (07:39→20:10)
[2021-12-05] MEDS: DOCUSATE SODIUM 100 MG CAP PO SCH ×2 (07:39→20:10)
[2021-12-05] MEDS: LIDOCAINE 5% 1 PATCH TD SCH (07:39)
[2021-12-05] MEDS: SENNA 8.6 MG TAB PO SCH (07:40)
[2021-12-05 09:38] LABS: Hemoglobin 14.2 g/dl (14.0-18.0); Mean Corpuscular Hemoglobin 30.7 pg (25.0-34.0); Mean Corpuscular Hgb Conc 33.8 g/dL (32.0-36.0); Mean Corpuscular Volume 90.7 fL (80.0-100.0); Mean Platelet Volume 8.9 fL (9.4-12.4); Platelet Count 254 K/uL (130-400); RDW Coefficient of Variation 12.9 % (11.5-14.5); RDW Standard Deviation 42.6 fL (36.4-46.3); Red Blood Count 4.63 M/uL (4.63-6.08); White Blood Count 6.87 K/ul (4.8-10.8)
[2021-12-05 09:58] LABS: BUN Creatinine Ratio 14.7 (10-20); Creatinine Clr Calc Pharmacy 95.8 ml/min; Est GFR (African American) 105.5 ml/min; Potassium 4.2 mmol/L (3.5-5.1)
--- NOTE | 2021-12-05 16:13 | Hospitalist Progress Note ---
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 Criselda Wang at [facility] scheduled for on December 31 Patient states that he has a place to stay once discharged from the hospital and is established with a local agency to help with a more permanent housing option. 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 Head CT and MRI brain w/wo without acute intracranial abnormality noted. No acute or subacute infarct. Recommends eye exam upon discharge with visual field testing for a more definitive diagnosis. Follow-up with ophthalmology as an outpatient after discharge. Constipation Resolved Continue bowel regimen HIV Most recent CD4 count 836 (24%) VL <20 on 10/27 Continue Biktarvy HS Follow up with ID Dr. Criselda Wang at [facility] Vertigo Started after received his last covid shot No focal neuro deficit on exam Seems to be improving Chronic Viral hepatis B Most recent recent viral load 3440 Outpatient U/S ordered as per ID note Questionable Hematuria on admission Resolved, no further episodes Avoid Nsaids Hgb remained stable Back pain Controlled with lidocaine patch and as needed Tylenol Tobacco abuse Counseling on tobacco cessation Nicotine patch DVT Px SQ heparin ID Contact (Betty): [phone] [facility] ([place]) : [phone] Admission and Anticipated Discharge Date Admission Date: November 26, 2021 Supervising Physician Co-Signing Physician Notes Patient is seen and examined at bedside. No new complaints. No change in visual symptoms. Denies any chest pain, shortness of breath, nausea, abdominal pain. On exam patient is moderately built and nourished, no apparent distress, normocephalic atraumatic, EOMI, normal breath sounds, clear to auscultation, S1- S2, no murmur, no pedal edema, abdomen soft, nontender, normal bowel sounds, alert, awake, oriented, grossly no focal deficits. Syphilis ; suspected neurosyphilis with visual changes. Continue IV penicillin G for possible neurosyphilis as recommended by ID - ending 12/06/2021. Needs follow-up with infectious disease/Ophthalmology upon discharge. I personally reviewed the record. Patient is interviewed and examined at bedside. Patient's care is coordinated with Eladia Washington PA-C. Please refer to the documentation above for details of patient's presentation and for discussion of other issues. Subjective Seen in follow-up for neurosyphilis. Resting in bed, denies any changes to condition overnight. Visual symptoms remain the same. No other neurological findings. No fever, chills, CP, SOB, abdominal pain, N/V/D, dysuria or constipation. Ambulating halls without issue. Is planning on staying with a friend locally once discharged. Review of Systems 2 Review of Systems: ROS per HPI, all other systems reviewed and negative Physical Exam Physical Exam: Gen: WD/WN, NAD, lying in bed, A&Ox3 HEENT: Normocephalic, atraumatic, conjunctivae moist, sclerae anicteric, mucous membranes moist Lung: Clear to Auscultation bilaterally, no wheezes/rales/rhonchi Heart: Regular rate, regular rhythm, no murmurs, rubs, or gallops Abdomen: Soft, NT, ND +BS x 4 Extremities: no edema Skin: Warm, no rash Results & Data Results & Data ([facility]) Vital Signs (Past 12 Hours) Vital Signs Temp Pulse Resp BP Pulse Ox O2 Del Method 12/05/21 14:48 37.1 C 68 16 102/64 98 Room Air 12/05/21 07:56 36.7 C 51 L 16 111/72 97 Room Air
[2021-12-05] MEDS: BIKTARVY PO SCH (20:10)
[2021-12-05] MEDS: MELATONIN 3 MG TAB PO PRN (20:18)
[2021-12-05] MEDS: LORazepam 0.5 MG TAB PO PRN (20:18)
[2021-12-06] MEDS: PENICILLIN G POTASSIUM 4 MU in DEXTROSE 5% 100 ML IV SCH ×3 (00:11→08:43)
[2021-12-06] MEDS: HEPARIN SOD 5,000 UNIT/0.5 ML VIAL SQ SCH (08:47)
[2021-12-06] MEDS: LIDOCAINE 5% 1 PATCH TD SCH (08:48)
[2021-12-06] MEDS: DOCUSATE SODIUM 100 MG CAP PO SCH (09:45)
[2021-12-06] MEDS: SENNA 8.6 MG TAB PO SCH (09:46)
[2021-12-06] MEDS: NICOTINE 14 MG/24 HR PATCH TD SCH (09:46)
[2021-12-06] MEDS ORDERED: PENICILLIN G POTASSIUM 4 MU in DEXTROSE 5% 100 ML IV STA (12:41)
--- NOTE | 2021-12-06 15:15 | Discharge Summary ---
Date of Service December 06, 2021 Admission HPI Per Admitting Provider 51 years old male with past medical history of HIV, chronic hepatitis B, dyslipidemia was sent to the hospital by infectious disease provider in [place], [place] to treat for possible neurosyphilis. History obtained from patient and infectious disease midlevel (Betty PUENTE). Patient recently moved to [facility] from [place]. Patient was tested positive for syphilis with positive RPR and positive fluorescent antibody in June and retested (Positive) in October (He cannot recall why he was tested for syphilis). As per infectious disease he was supposed to treat with penicillin x3 shots but only received 1 shot. Patient said since after his last COVID 19 vaccine that he has been having vertigo. He said if he stands up too quick he will pass out or fall. Patient said that for the last month he has been having vision changes where he sees a black spot in his right eye. Pt said that he feels confused on and off with brain frog. Infectious disease Dr. Wang from [place] was concerned for neurosyphilis. He was scheduled to get a lumbar puncture done last week but he had a vasovagal reaction with convulsions and transient altered sensorium during the prep for the lumbar puncture and the lumbar puncture was canceled. He refused to get a lumbar puncture after what he had experience last week. ID was trying to arrange for PICC line that he could receive IV penicillin infusion at home, but patient said that he received the call late yesterday to go for the PICC line. But due to his insurance issues since patient is originally from [place] and with history of noncompliant and drug abuse, his nurse Clover was having a hard time to get the antibiotic infusion arrange as outpatient. Spoke to Clover from [facility], she said she advised the patient to go to the hospital to get treated with IV antibiotic for possible neurosyphilis. Patient said on and off for the past few weeks he noticed hematuria. He said that he is having pain in his back. He takes Aleve for his pain. currently patient denies any chest pain, palpitation, dizziness, shortness of breath, numbness or weakness. Admission Exam Per Admitting Provider General- No acute distress Head- atraumatic Eyes- PERRL, EOMI ENT- oropharynx clear Neck- supple, no JVD, No carotid bruit present. No rigidity Lungs- clear to auscultation Heart- regular rhythm; no murmur Abdomen- normal bowel sounds, soft, nontender Extremities- no calf tenderness Neuro- alert, oriented x 3; PERRL, EOMI; no facial palsy; no dysarthria, finger to nose intact, sensation and motor intact Skin- warm & dry, tattooes on his back and extremities Principal Diagnosis neurosyphilis Discharge Exam General- No acute distress Head- atraumatic Eyes- PERRL, EOMI ENT- oropharynx clear Neck- supple, no JVD, No carotid bruit present. No rigidity Lungs- clear to auscultation Heart- regular rhythm; no murmur Abdomen- normal bowel sounds, soft, nontender Extremities- no calf tenderness Neuro- alert, oriented x 3; PERRL, EOMI; no facial palsy; no dysarthria, finger to nose intact, sensation and motor intact Skin- warm & dry, tattooes on his back and extremities Discharge Data Allergies Allergy/AdvReac Type Severity Reaction Status Date / Time codeine Allergy Severe Hives Verified 11/26/21 11:15 Consultations 11/26/21 11:12 ED Decision to Admit Stat 11/26/21 14:34 Consult Ophthalmology Routine Ordered Studies 11/27/21 17:10 CT head/brain wo con Routine 11/28/21 07:57 MRI Brain [MR brain wo/w con] Urgent Hospital Course (1) Syphilis: Possible Neurosyphilis due to vision changes Pt tested positive for syphilis in June with positive RPR and positive fluorescent antibody Admitting provider spoke to Infectious disease (Betty PUENTE ) at [facility] in [place] that recommended IV Penicillin G 4 Mu q4h or continuous for 10 to 14 days --> will complete 10 days (60 doses) on 12/06 after noon time dose No need to get an LP as per infectious disease since pt refused to get it and will not change the management Follow up with infectious disease provider Dr. Criselda Wang at [facility] scheduled for on December 31 Patient states that he has a place to stay once discharged from the hospital and is established with a local agency to help with a more permanent housing option. 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 Head CT and MRI brain w/wo without acute intracranial abnormality noted. No ac epifanio or subacute infarct. Recommends eye exam upon discharge with visual field testing for a more definitive diagnosis. Follow-up with ophthalmology as an outpatient after discharge. Constipation Resolved Continue bowel regimen HIV Most recent CD4 count 836 (24%) VL <20 on 10/27 Continue Biktarvy HS Follow up with ID Dr. Criselda Wang at [facility] Vertigo Started after received his last covid shot No focal neuro deficit on exam Seems to be improving Chronic Viral hepatis B Most recent recent viral load 3440 Outpatient U/S ordered as per ID note Questionable Hematuria on admission Resolved, no further episodes Avoid Nsaids Hgb remained stable Back pain Controlled with lidocaine patch and as needed Tylenol Tobacco abuse Counseling on tobacco cessation Nicotine patch DVT Px SQ heparin ID Contact (Betty): [phone] Dept health (Clover) : [phone] Total Time Total Time Spent Total Time Spent (In Minutes): 25 Total Time Includes: Examination of the Patient, Discharge Planning and Medication Reconciliation Discharge Plan Discharge Items Patient Disposition: Home - Self-Care Reason For Visit: NUEROSYPHILIS Discharge Diagnosis: neurosyphilis Activity: Resume your previous activity Non-emergency contact: Primary Care Provider and Specialist Call non-emergency contact if: you have any medication questions, your symptoms worsen and you have a fever Follow-up/Referrals: PCP,NO [Primary Care Provider] - Diet: Regular Addtl Attending Provider Instructions: You were admitted for concern for neurosyphilis and requiring IV antibiotics. you received a 10 day course without complications. You are to be followed up with ID on 12/31/[address] Criselda Wang at [facility]. Continue your home medications on discharge. Pending Studies at Discharge: No Stand-Alone Forms: [facility] [employer], Smoking Cessation Medications and DC Order Prescriptions: New lidocaine 5 % Adhesive Patch,Medicated 1 patch transdermal QAM Qty: 15 0RF nicotine 7 mg/24 hr Patch 24 Hour 14 mg transdermal QAM Qty: 14 0RF Continued Biktarvy 50-200-25 mg Tablet 1 tab PO HS Discharge Orders: Discharge Order (Routine); Ordered 12/06/21 Ordered By: Gustavo Yaadv Admission Data Admit Date/Time: 11/26/21 11:13 Attending Provider: Gustavo Yadav Admit Provider: Semaj Diaz Primary Care Provider: PCP,NO Other Providers: Semaj Diaz ; Diego Webster ; Eladia Washington ; [facility] ; [facility] Other Interventions: Discharge Summary Assessment (RN) Last Done: 12/06/21 12:57
--- NOTE | 2021-12-14 10:50 | Coding Query ---
CODING QUERY To promote full compliance with coding requirements relating to patient care, provider participation is requested in all cases of power system electrical engineer uncertainty. Please assist us with the question(s) below: Coding Question(s): Pt admitted with HIV and neurosyphyllis. Please check below the phrase that descirbes the nuerosyphyllis in relation to the HIV. Thanks for your help! Ari Rodriguez [employer] [facility] Physician's Response(s): Neurosyphyllis is an HIV-related illness Neurosyphyllis is not an HIV-related illness Cannot clinically correlate if Neurosyphyllis is an HIV-related illness Other: Please document: Principal Diagnosis: "that condition established after study, to be chiefly responsible for occasioning the admission of the patient to the hospital for care." Co-Existing Principal Diagnosis: "when two or more diagnoses equally meet the criteria for principal diagnosis as determined by the circumstances of admission, diagnostic work up, and/or therapy provided, and the Alphabetic Index, Tabular List, or another coding guideline does not provide sequencing direction, any one of the diagnoses may be sequenced first." "When the physician has documented what appears to be a current diagnosis in the body of the record, but has not included the diagnosis in the final diagnostic statement, the physician should be asked whether the diagnosis should be added." (Source Coding Clinic 2 QTR90. p3-4) Cannot clinically correlateif Neurosyphyllis is an HIV-related illness MTDD
== END 2021-12-06 14:34 | disposition home or self-care (01) | DRG 57 ==
LOC: ED 09:55 → SUATTDRO 11:13 → EDINP 11:13 → 3W 14:25